=== PATIENT | female | born 1980 | race Caucasian/White ===

== ENCOUNTER 2016-10-20 16:05 | Emergency (ER) | payer MEDICAID ==
[~2016-10-20] VITALS: Wt 64.0 kg
[~2016-10-20 16:05] MED LIST: IBUP-1542 PO; PROM6.25 PO
[2016-10-20] MEDS ORDERED: SOD CHLORIDE 0.9% 1,000 ML IV STA (18:52)
[2016-10-20] MEDS ORDERED: KETOROLAC 30 MG INJ IV STA (18:52)
[2016-10-20 19:31] LABS: ADD SCAN DIFF NO
[2016-10-20 19:34] LABS: ADD UMIC YES; BASOPHILS % 0.3 % (0.0-2.0); EOSINOPHILS # 0.1 10^3/ul (0.0-0.5); HEMOGLOBIN 12.2 g/dl (12.0-16.0); LYMPHOCYTES # 1.9 10^3/ul (0.8-2.9); LYMPHOCYTES % 27.8 % (15.0-51.0); MEAN CORPUSCULAR HEMOGLOBIN 30.5 pg (29.0-33.0); MEAN CORPUSCULAR HGB CONC 32.1 g/dl (32.0-37.0); MEAN PLATELET VOLUME 11.2 fl (7.4-10.4); MONOCYTE # 0.6 10^3/ul (0.3-0.9); MONOCYTES % 8.9 % (0.0-11.0); NEUTROPHILS % 60.5 % (39.0-77.0); PLATELET COUNT 229 10^3/UL (140-415); RED CELL DISTRIBUTION WIDTH 12.2 % (11.5-14.5); URINE BILIRUBIN (Dip) NEGATIVE (NEGATIVE); URINE BLOOD (Dip) 3+ (NEGATIVE); URINE COLOR LT. YELLOW (YELLOW); URINE GLUCOSE (Dip) NEGATIVE (NEGATIVE); URINE KETONES (Dip) NEGATIVE (NEGATIVE); URINE LEUKOCYTE ESTERASE (Dip) NEGATIVE (NEGATIVE); URINE NITRITE (Dip) NEGATIVE (NEGATIVE); URINE TOTAL PROTEIN (Dip) NEGATIVE (NEGATIVE); URINE UROBILINOGEN (Dip) 0.2 E.U./dL (0.1-1.0); WHITE BLOOD COUNT 6.7 10^3/ul (4.8-10.8)
[2016-10-20 19:44] LABS: SQUAMOUS EPITHELIAL CELL,UR FEW
[2016-10-20 19:56] LABS: ALBUMIN 4.4 g/dl (3.3-4.9)
[2016-10-20 19:57] LABS: POTASSIUM 3.6 mmol/L (3.5-5.1)
[2016-10-20 19:59] LABS: BILIRUBIN,INDIRECT 0.1 mg/dl (0-1.1); BILIRUBIN,TOTAL 0.1 mg/dl (0.2-1.3); CREATININE 0.84 mg/dl (0.44-1.00)
[2016-10-20 20:00] LABS: ALBUMIN/GLOBULIN RATIO 1.41; CALCIUM 9.2 mg/dl (8.4-10.2); TOTAL PROTEIN 7.5 g/dl (6.1-8.1)
--- NOTE | 2016-10-20 21:04 | RADRPT ---
PROCEDURE: CT abdomen and pelvis without contrast. CLINICAL INDICATION: Abdominal Pain TECHNIQUE: CT scan of the abdomen and pelvis without contrast was performed and is reconstructed a t 2.5 mm contiguous axial intervals from the dome of the diaphragm to the inferior pubic rami.. The patient was scanned without intravenous contrast. Sagittal and coronal reformatted images were obt ained from the axial source images. The calculated radiation dose measures 384 mGy centimeters. The CTDI measures 46 mGy. COMPARISON: CT abdomen pelvis September 03, 2013 FINDINGS: The lung bases are clear of any infiltrate or nodule. No effusion is seen. The liver is of normal size, contour and attenuation with no solid mass or ductal dilatation. Noted is a 1 cm cyst on the inferior lateral aspect of the right lobe of the liver. No ductal dilatation is present. No gallstones are visualized. No splenic, adrenal or pancreatic abnormalities prese nt. Kidneys are of normal size and contour. No hydronephrosis, calculus or masses seen. Ureters are o f normal course and caliber with no stone. No bladder mass or stone is present. Uterus and ovaries appear normal. There is no aneurysm. No adenopathy is present. No bowel mass or obstruction is present. The appendix is normal. No phlegmon, ascites or pneumop eritoneum is visualized. The osseous structures are intact. IMPRESSION: No evidence of urolithiasis, obstructive uropathy, diverticulitis or appendicitis. Small hepatic cyst. .Declan Stacy MD, Date Time Electronically viewed and signed by .Declan Stacy MD, on 10/20/2016 21:04 .A/
[2016-10-20] MEDS ORDERED: IBUP-1542 PO (21:41)
[2016-10-20] MEDS ORDERED: HYDR-906 PO (21:41)
--- NOTE | 2016-10-20 21:59 | ERD ---
ER Documentation Chief Complaint Date/Time DATE: 10/20/16 TIME: 21:54 Chief Complaint 3WKS OF PAIN LEFT SIDE ABD, NO DISTRESS. NO DYSURIA NOTED. HPI This is a 35-year-old female presents to the ER with 3 weeks of left-sided flank pain that radiates to her left abdomen, and into her left leg. Patient states that pain is intermittent and sharp in quality. Patient denies nausea vomiting or diarrhea. She does admit to bouts of constipation. Patient is also complaining of chest pain. Chest pain is nonexertional. Patient denies any leg pain redness or swelling. She denies any recent travel. She does not have a history of embolism. Patient has been taking Tylenol and ibuprofen for the pain and this helps. Patient denies any urinary frequency or dysuria. Patient denies hematuria. ROS 12 point review of systems was done, all negative except per HPI. Medications Home Meds Active Scripts Ibuprofen* (Motrin*) 600 Mg Tab, 600 MG PO Q6, #30 TAB Prov:HUNTER BUI 10/20/16 Hydrocodone/Acetaminophen ([place] 5-325 Tablet) 1 Each Tablet, 1 TAB PO Q6H Y for PAIN, #15 TAB Prov:HUNTER BUI 10/20/16 Promethazine w/Codeine* (Phenergan w/Codeine* Syrup) 5 Ml Syrup, 5 ML PO Q4H Y for COUGH for 4 Days, ML 6 oz Prov:MAURA SAUCEDA MD 11/30/15 Ibuprofen* (Motrin*) 600 Mg Tab, 600 MG PO Q6, #20 TAB Prov:MAURA SAUCEDA MD 11/30/15 Allergies Allergies: Coded Allergies: No Known Allergy (Unverified , 11/30/15) PMhx/Soc Medical and Surgical Hx: pt denies Medical Hx, pt denies Surgical Hx Hx Alcohol Use: No Hx Substance Use: No Hx Tobacco Use: No Smoking Status: Never smoker Physical Exam Vitals Vital Signs Date Time Temp Pulse Resp B/P Pulse Ox O2 Delivery O2 Flow Rate FiO2 10/20/16 16:33 98.8 82 20 125/65 100 Physical Exam GENERAL: The patient is well developed and appropriate for usual state of health , in no apparent distress. HEENT: Atraumatic. Conjunctivae are pink. Pupils equal, round, and reactive to light. Extraocular muscles are grossly intact. Bilateral tympanic membranes are clear with no evidence of erythema, effusion or dulling of the light reflex. The oropharynx is clear with no erythema or exudates. NECK: C-spine is soft and supple. There is no cervical lymphadenopathy. CHEST: Clear to auscultation bilaterally. There are no rales, wheezes or rhonchi. HEART: Regular rate and rhythm. No murmurs, clicks, rubs or gallops. ABDOMEN: Soft, nontender and nondistended. Good bowel sounds. No rebound or guarding. No gross peritonitis. No gross organomegaly or masses. No Ortega sign or McBurney point tenderness. BACK: No midline or flank tenderness. EXTREMITIES: Equal pulses bilaterally. There is no peripheral clubbing, cyanosis or edema. No focal swelling or erythema. Full range of motion. Grossly neurovascularly intact. NEURO: Alert and oriented. Cranial nerves II through XII are intact. Motor strength in all 4 extremities with 5/5 strength. Sensation grossly intact. Normal speech and gait. SKIN: There is no apparent rash or petechia. The skin is warm and dry. Result Diagram: 10/20/16191910/20/161919 Results 24 hrs Laboratory Tests Test 10/20/16 19:20 Alanine Aminotransferase (ALT/SGPT) 19IU/L Albumin 4.4g/dl Albumin/Globulin Ratio 1.41 Alkaline Phosphatase 79IU/L Anion Gap 16 Aspartate Amino Transf (AST/SGOT) 21IU/L Basophils # 0.010^3/ul Basophils % 0.3% Blood Urea Nitrogen 14mg/dl Calcium Level 9.2mg/dl Carbon Dioxide Level 27mmol/L Chloride Level 102mmol/L Creatinine 0.84mg/dl Direct Bilirubin 0.00mg/dl Eosinophils # 0.110^3/ul Eosinophils % 2.0% Globulin 3.10g/dl Glucose Level 93mg/dl Hematocrit 38.0% Hemoglobin 12.2g/dl Indirect Bilirubin 0.1mg/dl Lipase 95U/L Lymphocytes # 1.910^3/ul Lymphocytes % 27.8% Mean Corpuscular Hemoglobin 30.5pg Mean Corpuscular Hemoglobin Concent 32.1g/dl Mean Corpuscular Volume 95.0fl Mean Platelet Volume 11.2fl Monocytes # 0.610^3/ul Monocytes % 8.9% Neutrophils # 4.010^3/ul Neutrophils % 60.5% Nucleated Red Blood Cells # 0.010^3/ul Nucleated Red Blood Cells % 0.0/100WBC Platelet Count 42822^3/UL Potassium Level 3.6mmol/L Red Blood Count 4.0010^6/ul Red Cell Distribution Width 12.2% Sodium Level 141mmol/L Total Bilirubin 0.1mg/dl Total Protein 7.5g/dl Urine Bilirubin NEGATIVE Urine Clarity CLEAR Urine Color LT. YELLOW Urine Glucose NEGATIVE% Urine Hemoglobin 3+ Urine Ketones NEGATIVE Urine Leukocyte Esterase NEGATIVE Urine Microscopic RBC 2-5/HPF Urine Microscopic WBC 0-2/HPF Urine Nitrite NEGATIVE Urine Specific [place] 1.025 Urine Squamous Epithelial Cells FEW Urine Total Protein NEGATIVE Urine Urobilinogen 0.2 E.U./dL Urine pH 6.0 White Blood Count 6.710^3/ul Current Medications Medications (Trade) Dose Ordered Sig/Bj Route PRN Reason Start Time Stop Time Status Last Admin Dose Admin Sodium Chloride (NS) 1,000 ml @ 1,000 mls/hr Q1H STAT IV 10/20/16 18:52 10/20/16 19:51 DC 10/20/16 19:08 Ketorolac Tromethamine (Toradol) 30 mg ONCE STAT IV 10/20/16 18:52 10/20/16 18:54 DC 10/20/16 19:08 Procedures/MDM EKG was read by Dr. Bishop 77bpm no ST elevation no t wave inversion Differential diagnosis includes but is not limited to appendicitis, hernia, UTI , constipation, ectopic , ovarian torsion, PID, Mittelschmerz, fibroid , nephrolithiasis, obstructive, septic stone, obstruction. This is a 35-year- old female presents to the ER with 3 weeks of left-sided flank pain that radiates into her stomach and leg. Patient is afebrile and well-appearing. At this time suspicion for acute abdominal etiology is low. Suspicion for cauda equina or epidural abscess is low. He is logically neurovascularly intact in lower extremities. In regards to patient's chest pain I doubt this is cardiac in etiology. Patient was sent home with [place] with ibuprofen. Patient is to follow-up with her primary care doctor within 1-2 days or return to ER sooner if symptoms worsen. Medical decision making was shared with the patient she understands and agrees with plan. Departure Diagnosis: Primary Impression: Multiple complaints Condition: Stable Patient Instructions: Abdominal Pain, Unknown Cause, (Female) Additional Instructions: Call your primary care doctor TOMORROW for an appointment during the next 1-2 days.See the doctor sooner or return here if your condition worsens before your appointment time. HUNTER BUI Oct 20, 2016 21:59
[2016-10-20 22:16] VITALS: BP 102/60; PULSE 76; RESP 20; TEMP 98.4
== END 2016-10-20 22:17 | disposition home or self-care (01) ==
LOC: FTE 16:05
DX: R10.9 Unspecified abdominal pain (principal); R07.9 Chest pain, unspecified
CPT/HCPCS: 36415; 74176; 80053; 81001; 83690; 85025; 93005; 96374; J1885; J7030; Z7502; 81003